=== PATIENT | male | born 1970 | race Caucasian/White ===

== ENCOUNTER 2016-12-28 23:31 | Emergency (ER) | payer SELFPAY ==
[~2016-12-28] VITALS: Ht 172.7 cm; Wt 98.0 kg
[2016-12-28 23:33] VITALS: Ht 172.7 cm; Wt 98.0 kg
== END 2016-12-29 01:02 | disposition left against medical advice (07) ==
LOC: E/R 23:31
DX: Z53.21 Procedure and treatment not carried out due to patient leaving prior to being seen by health care provider (principal)